=== PATIENT | female | born 1935 | race Caucasian/White ===

== ENCOUNTER 2018-01-17 09:06 | Outpatient (CLI) | payer MEDICARE ==
[~2018-01-17 09:06] MED LIST: Lidocaine 2% Jelly 5 ML TUBE ONE; Sodium Chloride 0.9% 15 ML NEB ONE
--- NOTE | 2018-01-17 13:15 | PRG ---
DATE OF SERVICE: 01/17/2018 CHIEF COMPLAINT: Wounds on both feet. HISTORY OF PRESENT ILLNESS: This is an 82-year-old female, who presents today with ulcerations to bi lateral feet, it has been present for years. 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 Should these have been treated with Santyl dressing with Silver vaishali gauze covering, recently had tried some tape on the skin, which caused some irritation. These dr essings have been changed on a daily basis. Past medical history, past surgical history, social history, family history, and review of systems as documented [facility]. MEDICATIONS AND ALLERGIES: See list in her [facility]. PHYSICAL EXAMINATION: VITAL SIGNS: Temperature 97.5, pulse 92, respiration rate 18, and blood pressure 120/66. VASCULAR: Dorsalis pedis, posterior tibial pulses are nonpalpable. They are monophasic on Doppler. She has i mmediate capillary fill time to the distal aspect of all toes. There is a +2 pitting edema to the bi lateral lower extremities and feet. NEUROLOGICAL: Light touch protective sensation thresholds are intact. DERMATOLOGIC: Within the foot, there are four wounds present, right foot plantar. Plantar medial fo refoot measures 0.5 x 0.5 cm x 0.2 cm, 100% slough. No periwound erythema, edema or warmth. There i s some mild periwound hyperkeratosis, right foot plantar medial heel measuring 2 cm x 1.5 cm x 0.4 cm , 100% slough. No periwound erythema, edema, or warmth. Left foot the lateral plantar heel and vera ures 1.5 cm x 2.2 cm x 0.4 cm, 100% slough. No periwound erythema, edema, or warmth and the fourth w ound is still in the left foot medial plantar heel 0.5 x 0.5 cm x 0.2 cm. No periwound erythema, jacobo ma, or warmth 100% slough. ASSESSMENT: 1. 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 2. Venous insufficiency. 3. Peripheral vascular disease, unspecified. PLAN: 1. Full thickness debridement of the subcutaneous tissue layer of all four wounds after lidocaine ge l was applied for 15 minutes. The patient experienced some pain during debridement of the wounds, we removed all biofilm from the wound base utilizing the dermal curet. 2. Continue with daily Santyl foam gauze and Coban dressing changes. We will send these orders to [facility] so that they may assist in the dressing changes, but these dressing changes ne ed to be done on a daily basis. 3. The patient will follow up with me in 1 week. 4. I talked with the patient about her venous insufficiency and swelling. I think the compression w rap should be good for her legs, although she absolutely declines this at this time.
== END 2018-01-17 09:07 | disposition home or self-care (01) ==
LOC: WCC 09:06
PROVIDERS: ATTEND Podiatrist Foot & Ankle Surgery
DX: L97.429 Non-pressure chronic ulcer of left heel and midfoot with unspecified severity (principal); L97.419 Non-pressure chronic ulcer of right heel and midfoot with unspecified severity; I87.2 Venous insufficiency (chronic) (peripheral); I73.9 Peripheral vascular disease, unspecified
CPT/HCPCS: 11042; 99203; A4218; G0463

== ENCOUNTER 2018-01-24 10:18 | Outpatient (CLI) | payer MEDICARE | END 2018-01-24 10:19 | disposition home or self-care (01) | LOC: WCC 10:18 | PROVIDERS: ATTEND Family Medicine | DX: L97.919 Non-pressure chronic ulcer of unspecified part of right lower leg with unspecified severity (principal); L97.929 Non-pressure chronic ulcer of unspecified part of left lower leg with unspecified severity | CPT/HCPCS: 97602 ==